=== PATIENT | female | born 1990 | race African-American/Black ===

== ENCOUNTER 2017-06-22 11:23 | Inpatient (IN) | payer SELFPAY ==
[~2017-06-22] VITALS: Ht 152.4 cm; Wt 69.9 kg
[2017-06-22] MEDS ORDERED: SODIUM CHLORIDE 0.9% 500 ML IV ONE (15:15)
[2017-06-22 16:08] LABS: CHLORIDE 104 mEq/L (98-107)
[2017-06-22 16:09] LABS: INR 1.1; PROTHROMBIN TIME 11.7 sec (9.4-11.6)
[2017-06-22 16:14] LABS: HEMATOCRIT. 37.2 % (36.0-48.0); HEMOGLOBIN. 12.7 g/dL (12.0-16.0); MEAN CORPUSCULAR HEMOGLOBIN 29.9 pg (28.0-32.0); MEAN CORPUSCULAR VOLUME 87.6 fL (81.0-99.0); MEAN PLATELET VOLUME 7.7 fl (7.4-10.4); PLATELET 353 x1000/uL (130-400); RED BLOOD CELL COUNT 4.24 mill/uL (4.2-5.4); RED CELL DISTRIBUTION WIDTH 14.9 % (11.6-14.6)
[2017-06-22 16:19] LABS: T4 FREE 1.31 ng/dL (0.76-1.46)
[2017-06-22 16:56] LABS: CLARITY URINE CLEAR (CLEAR); COLOR URINE YELLOW (YELLOW); KETONES URINE TRACE (NEGATIVE); LEUKOCYTE ESTERASE URINE 1+ (NEGATIVE); NITRITE URINE NEGATIVE (NEGATIVE); OCCULT BLOOD URINE TRACE (NEGATIVE); PH URINE 6.5 (4.5-8.0); PROTEIN URINE NEGATIVE (NEGATIVE); SPECIFIC GRAVITY URINE 1.008 (1.005-1.030); UROBILINOGEN URINE 0.2 E.U./dL (0.2-1.0)
[2017-06-22 17:08] LABS: *AMPHETAMINES SCREEN URINE NEGATIVE (NEGATIVE)
[2017-06-22 17:09] LABS: *BARBITURATES SCREEN URINE NEGATIVE (NEGATIVE); *BENZODIAZEPINES SCREEN URINE NEGATIVE (NEGATIVE); *COCAINE SCREEN URINE NEGATIVE (NEGATIVE); METHADONE URINE SCREEN NEGATIVE (NEGATIVE); OPIATES URINE SCREEN NEGATIVE (NEGATIVE); PHENCYCLIDINE URINE SCREEN NEGATIVE (NEGATIVE)
[2017-06-22 17:10] LABS: CANNABINOID URINE SCREEN NEGATIVE (NEGATIVE)
[2017-06-22 17:12] LABS: PLATELET ESTIMATE NORMAL
[2017-06-22] MEDS ORDERED: SULFAMETHOXAZOLE/TRIMETHOPRIM 800/160MG TABLET PO ONE (20:00)
[2017-06-22 21:45] LABS: HEPATITIS B SURFACE ANTIGEN NEGATIVE
[2017-06-22 22:04] LABS: CARCINO EMBRYONIC ANTIGEN < 0.5 ng/ml
[2017-06-22 22:13] LABS: HEPATITIS B CORE AB IGM NEGATIVE
[2017-06-22 22:15] LABS: HEPATITIS A AB IGM NEGATIVE (NEGATIVE)
[2017-06-22] MEDS ORDERED: ONDANSETRON HCL 4MG/2ML VIAL IV PRN (23:45)
[2017-06-22] MEDS ORDERED: GUAIFENESIN 200MG/10ML SUGAR FREE UDC PO PRN (23:45)
[2017-06-22] MEDS ORDERED: CLONIDINE 0.1MG TABLET PO PRN (23:45)
[2017-06-22] MEDS ORDERED: HYDROCODONE/ACETAMINOPHEN 5/325MG TABLET PO PRN (23:45)
[2017-06-22] MEDS ORDERED: ACETAMINOPHEN 325MG TABLET PO PRN (23:45)
[2017-06-22] MEDS ORDERED: DOCUSATE SODIUM 100MG CAPSULE PO PRN (23:45)
[2017-06-23] MEDS ORDERED: LEVOFLOXACIN 500MG PREMIX 100 ML IV NR (00:15)
[2017-06-23 04:50] VITALS: BP 157/103
[2017-06-23 06:51] LABS: BASOPHILS % 0.4 % (0.0-2.0); EOSINOPHILS % 0.1 % (0.0-5.0); HEMOGLOBIN. 11.9 g/dL (12.0-16.0); LYMPHOCYTES % 18.2 % (20.0-50.0); MEAN CORPUSCULAR HEMOGLOBIN 30.5 pg (28.0-32.0); MEAN CORPUSCULAR VOLUME 87.6 fL (81.0-99.0); MEAN PLATELET VOLUME 7.4 fl (7.4-10.4); NEUTROPHILS % 71.3 % (40.0-76.0); PLATELET 327 x1000/uL (130-400); RED BLOOD CELL COUNT 3.89 mill/uL (4.2-5.4)
[2017-06-23 06:55] LABS: CHLORIDE 105 mEq/L (98-107)
[2017-06-23 08:50] VITALS: BP 151/103
[2017-06-23] MEDS ORDERED: AMLODIPINE 10MG TABLET PO SCH (09:00)
[2017-06-23] MEDS: BLOOD SUGAR DIAGNOSTIC STRIP TEST SCH ×2 (09:15→11:08)
[2017-06-23] MEDS ORDERED: DEXTROSE 50% WATER 50ML SYRINGE IV PRN (09:15)
[2017-06-23] MEDS: INSULIN LISPRO 100 UNITS/ML SUBCUT SCH ×2 (09:15→11:08)
[2017-06-23] MEDS ORDERED: POTASSIUM CHLORIDE 20MEQ TABLET SR PO SCH (10:30)
[2017-06-23 10:36] VITALS: BP 135/80
[2017-06-23 12:26] VITALS: BP 143/98
[2017-06-24] MEDS ORDERED: LEVOFLOXACIN 500MG PREMIX 100 ML IV SCH (01:00)
[2017-06-24 19:06] LABS: ANTI-NUCLEAR ANTIBODIES DIRECT Negative (Negative)
== END 2017-06-23 15:15 | disposition home or self-care (01) | DRG 203 ==
LOC: ER 11:38 → 8WST 19:43 → SUPCPDRO 23:41 → UNDOADMIN 06-23 07:03 → 8WST 06-23 07:03
PROVIDERS: ADMIT Hospitalist; ATTEND Hospitalist
DX: R07.89 Other chest pain (principal); I10 Essential (primary) hypertension; E11.9 Type 2 diabetes mellitus without complications; E87.6 Hypokalemia; F41.1 Generalized anxiety disorder; R91.1 Solitary pulmonary nodule; Z72.89 Other problems related to lifestyle
CPT/HCPCS: 36415; 71045; 71250; 74176; 80053; 80305; 81003; 82378; 83036; 83880; 84439; 84443; 84484; 85025; 85610; 86038; 86304; 86376; 86705; 86709; 86803; 87040; 87077; 87086; 87186; 87340; 93005; 96361; 96365; 96366; 99285; J1956; J7040